=== PATIENT | female | born 1935 | race Caucasian/White ===

== ENCOUNTER 2018-09-16 16:17 | Inpatient (IN) | payer OTHER ==
--- NOTE | 2018-09-16 18:55 | GHP ---
POST ADMISSION PHYSICIAN EVALUATION AND REHABILITATION TREATMENT PLAN DATE OF ADMISSION: 09/16/2018 DATE OF EVALUATION: 09/16/2018. TIME OF EVALUATION: 1730 hours. REFERRING FACILITY: [facility]. REFERRING PHYSICIAN: Michele IMPAIRMENT GROUP: 3.8. DATE OF ONSET: 09/06/2018. CONSULTING PHYSICIANS: She was seen in consultation by neurologist, Dr. Olivas. Critical care physician, Dr. Mckeon. Inside Sales Director, Dr. Marie. REHABILITATION DIAGNOSIS: Debility, status post myasthenia gravis crisis. ETIOLOGIC DIAGNOSIS: Neuromuscular disorders. HISTORY OF PRESENT ILLNESS: This patient has a history of myasthenia gravis. She was treated with pyridostigmine, but she reports that she was not consistent with taking it. She had approximately a 1-week history of waxing and waning symptoms with difficulty speaking and swallowing, difficulty clearing secretions, perioral/oral numbness, and coughing. At the hospital, she was found to be in acute respiratory failure and unable to clear secretions. She was intubated on 09/06/2018 and extubated on 09/08/2018. She received plasma exchange and 5 days of IVIG. She was treated with high-dose corticosteroids, as well as pyridostigmine. She had an episode of paroxysmal atrial fibrillation while in the hospital. 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 It was evaluated for catecholamine secretion with a test for urinary metanephrines, which was negative.She had considerable improvement, and is otherwise medically stable and ready for inpatient rehabilitation. LABS AND STUDIES DURING HER STAY: Basic metabolic profile was followed, and was normal and remained stable on tests to which I have access 09/13 through 07/2018. CBC showed an elevated white blood cell count consistent with corticosteroid treatment. She also had a low platelet count. Otherwise, CBC was normal. Triglycerides were normal. Brain imaging showed white matter changes consistent with ischemic small vessel disease. She had mild-to- moderate proximal left vertebral artery stenosis, and the paraganglioma was seen. There was no evidence of acute infarction and no significant mass lesions seen. Chest x-rays ruled out pneumonia and verified placement of endotracheal tube. An abdominal x-ray verified placement of a small bowel feeding tube. PRECAUTIONS: She is a fall risk, and she has aspiration precautions. ACTIVE COMORBIDITIES: She has the tier 2 comorbidity of dysphagia. She has no other active tier 1, tier 2, or tier 3 comorbidities. PAST MEDICAL HISTORY: 1. Hypothyroidism. 2. Myasthenia gravis. 3. Kyphosis. PAST SURGICAL HISTORY: She has not had any surgeries. PRE-HOSPITAL MEDICATIONS: 1. Levothyroxine 100 mcg p.o. daily. 2. Pyridostigmine 60 mg p.o. three times daily. ADMISSION MEDICATIONS: 1. Levothyroxine 100 mcg p.o. daily. 2. Omeprazole 20 mg p.o. daily, to be taken as long as she is taking prednisone. 3. Prednisone 40 mg p.o. daily, with taper to be determined on neurology followup. 4. Pyridostigmine 60 mg p.o. three times daily. ALLERGIES: There is an allergy listed to penicillin. PSYCHOSOCIAL HISTORY: She lives alone. She has a downstairs roommate, whom she was able to call for help, who took her to the hospital. She is a nonsmoker and a nondrinker. 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 She has a local son. FAMILY HISTORY: Noncontributory. REVIEW OF SYSTEMS: She is not in pain. She reports she has had considerable improvement in terms of her strength, but she feels weak due to her multiple days flat on her back in the hospital. She denies difficulty swallowing. She does not notice fatigue of small muscles with repetitive use and is not aware of any dysarthria. She has no vision changes. She reports normal sensation. She denies cough or dyspnea. She denies chest pain or palpitations. She denies nausea, vomiting, constipation, or diarrhea, and she has a good appetite. She denies dysuria or urinary frequency. Otherwise, a 10-point review of systems is negative. PHYSICAL EXAM: VITAL SIGNS: Blood pressure is 134/78, heart rate 75, respiratory rate 16, oxygen saturation 95% on room air, and temperature 36.8 degrees centigrade. Her weight is 67.1 kg for a body mass index of 23.9. GENERAL: This is a well-nourished, well-developed elderly female, wearing hospital scrubs, sitting up in a chair, eating dinner, cooperative and in no acute distress. HEENT: Extraocular movements are intact. Pupils are equal, round, and reactive to light. Mucous membranes are moist. Dentition is in good condition. She has been uncrowded airway, Mallampati class 1. NECK: Supple. HEART: There is a regular rate and rhythm with no murmurs, rubs, or gallops. LUNGS: Clear to auscultation bilaterally. ABDOMEN: Soft, nontender , and nondistended with normoactive bowel sounds. BACK AND EXTREMITIES: She has notable kyphosis. There is no cyanosis, clubbing, or edema. Radial and dorsalis pedis pulses are 2+ bilaterally. NEUROLOGIC: She is alert and oriented x3. Cranial nerves 2 through 12 are grossly intact. There is no focal weakness. Sensation is intact to light touch. There is no dysarthria. She is able to arise from seated independently, and she can ambulate with a slightly wide base of support and short steps. CURRENT LEVEL OF FUNCTION PER THE PREADMISSION SCREEN: She was on a dysphagia 1 diet with nectar-thick liquids; however, she has since been advanced to a regular textured diet and thin liquids. Grooming required setup and supervision. Dressing required maximal assist for lower body dressing, especially socks. Toileting was done with supervision. Bed mobility required moderate assist from supine to sit. Transfers required supervision for sit to stand. She used a front-wheeled walker. She was able to stand as long as 10 minutes with occasional rests. She was able to ambulate with supervision and a front-wheeled walker for 150 feet. Communication and cognition were considered to be intact. On today's exam, she appears to have developed more independence with mobility. Otherwise, there are no significant changes from the pre-admission screen. IMPRESSION: This is an 83-year-old woman with a history of myasthenia gravis, who was inconsistent in use of pyridostigmine and developed a myasthenia gravis crisis with inability to clear secretions, difficulty swallowing, and subsequent acute respiratory failure. She was intubated. She received treatment including plasmapheresis, IVIG, and high-dose steroids, and she has had recovery. However, she remains in a debilitated state from her time in the hospital, including intubation and associated bedrest and inactivity. During her hospitalization, she had an episode of paroxysmal atrial fibrillation which resolved. She was discharged on no anticoagulation. 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 She otherwise was medically stable and is appropriate for inpatient rehabilitation. Her goal is to complete a rehabilitation stay and then return home with support from her roommate and her son. She wishes to be independent for mobility and activities of daily. For a safe discharge, it is anticipated that she will be able to advance to a modified independent level for all activities of daily living and mobility using the least restrictive device. She may have support from her roommate and her son for household duties. She will need to be on the least restrictive diet and to manage oral secretions. She will need to have insight into her deficits and be able to use compensatory strategies independently. She will have therapy with Physical Therapy, Occupational Therapy, and Speech and Language Pathology for 60 minutes per day for each discipline on 5 to 7 days of the week. Her expected duration of stay is 5 to 7 days. It is anticipated that upon discharge, she may benefit from home health services including Nursing, Speech and Language Pathology, Occupational Therapy , and Physical Therapy, as well as a myasthenia gravis support group. PLAN: 1. Debility following hospitalization for myasthenia gravis with considerable recovery following treatment with plasmapheresis, IVIG, and high-dose corticosteroids. PT and OT to optimize mobility and activities of daily living towards discharge home at the modified independent level. 2. Dysphagia appears to have largely resolved. She is discharged on thin liquids and a regular texture diet. She will have screening per Speech and Language Pathology. 3. Myasthenia gravis. Continue prednisone at 40 mg daily and pyridostigmine at 60 mg three times daily. She will follow up with Neurology after her discharge for a prednisone taper. 4. Hypothyroidism. Continue levothyroxine. 5. Right carotid paraganglioma. Plan from the hospital was to follow up with ENT, as well as Oncology at [facility]. 6. Prophylaxis. The episode of atrial fibrillation was considered to be due to critical illness, and no recommendation was made regarding anticoagulation. She is on prednisone at a high dose, and so she has been cautiously prescribed omeprazole for GI protection. She will continue likely pantoprazole per hospital formulary, likely throughout her rehabilitation stay. FOLLOWUP: She will follow up with primary care provider, Dr. Parsons, at the [facility]. She will follow up with [facility] within 1 to 2 weeks. She will follow up regarding her paraganglioma, with the plan being to be seen by a specialist at [facility]. /[id number]/MODL MTDD
[2018-09-16] MEDS: PYRIDOSTIGMINE BROMIDE 60 MG TAB PO SCH (20:09)
[2018-09-17] MEDS: PANTOPRAZOLE SODIUM 40 MG TAB PO SCH (06:17)
[2018-09-17] MEDS: LEVOTHYROXINE 100 MCG TAB PO SCH (06:17)
[2018-09-17] MEDS: PYRIDOSTIGMINE BROMIDE 60 MG TAB PO SCH ×3 (08:37→20:21)
[2018-09-17] MEDS ORDERED: predniSONE 5 MG TAB PO SCH (09:00)
--- NOTE | 2018-09-17 12:41 | SOAPPROG ---
SOAP Progress Note Assessment/Plan: Assessment: Debility-recent hospitalization from ice any a gravis with considerable recovery following treatment with plasmapheresis, IVIG, and high-dose corticosteroids. PT and OT to optimize mobility and activities of daily living towards discharge home at the [facility] Dysphagia-She was admitted to the rehab service on thin liquids and regular texture diet. Speech and language pathology consulted and awaiting input Myasthenis Gravis. Continue prednisone 40 mg daily and pyridostigmine 60 mg three times daily. Follow-up with Neurology after her discharge for prednisone taper. Hypothyroidism. Continue levothyroxine. Right carotid paraganglioma. Follow-up with ENT as well as Oncology at [facility]. Prophylaxis. The episode of atrial fibrillation was considered to be due to critical illness and no recommendation was made regarding anticoagulation. She is on prednisone at high dose and so she has been cautiously prescribed omeprazole for GI prophylaxis. Dorsal kyphosis-physical therapy to instruct on exercises to stretch the pectorals and strengthen the shoulder elevators and retractors to improve posture and pulmonary function. Follow-up: She will follow-up with primary care provider, Dr. Parsons at the [facility]. She will have follow-up with [facility] within 1 -2 weeks. She will have follow-up regarding her para ganglioma at [facility] Plan: 09/17/18 12:36 Subjective: She reports she feels a little bit fatigued after multiple therapy sessions this morning. She does report that she is feeling stronger. She denies shortness of breath or dyspnea on exertion. No reports of anginal like symptoms during therapy. Objective: Vital Signs Temp Pulse Resp BP Pulse Ox 36.6 C 66 16 138/76 H 96 09/17/18 08:00 09/17/18 08:00 09/17/18 08:00 09/17/18 08:00 09/17/18 08:00 Laboratory Results 09/17/18 06:50 09/16/18 09/17/18 09/18/18 05:59 05:59 05:59 Intake Total 375 Output Total 450 Balance -75 Physical Exam - Physical Exam General Appearance: WD/WN, alert, no apparent distress Respiratory: lungs clear, normal breath sounds, other (Dorsal kyphosis noted) Abdomen: normal bowel sounds, non-tender, soft Skin: warm/dry Extremities: No swelling, No Kenneth's sign Neuro/Psych: alert, normal mood/affect, oriented x 3 (Subjectively reports weakness in both upper and lower extremities ), No speech abnormalities ICD10 Worksheet Patient Problems: Problems Problem Status Onset Myasthenia gravis Acute
[2018-09-18] MEDS: LEVOTHYROXINE 100 MCG TAB PO SCH (06:53)
[2018-09-18] MEDS: PANTOPRAZOLE SODIUM 40 MG TAB PO SCH (06:53)
[2018-09-18] MEDS: PYRIDOSTIGMINE BROMIDE 60 MG TAB PO SCH ×3 (09:14→20:01)
[2018-09-18] MEDS: predniSONE 20 MG TAB PO SCH (09:14)
--- NOTE | 2018-09-18 09:18 | SOAPPROG ---
SOAP Progress Note Assessment/Plan: Assessment: Debility-recent hospitalization from myasthenia gravis with considerable recovery following treatment with plasmapheresis, IVIG, and high-dose corticosteroids. PT and OT to optimize mobility and activities of daily living towards discharge home at the [facility]. SHE REPORTS HER STRENGTH IS IMPROVING. 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 Dysphagia-She was admitted to the rehab service on thin liquids and regular texture diet. Speech and language pathology consulted and awaiting input. DENIES DYSPHAGIA. SHE IS TOLERATING REGULAR DIET AND THIN LIQUIDS. Myasthenis Gravis. Continue prednisone 40 mg daily and pyridostigmine 60 mg three times daily. Follow-up with Neurology after her discharge for prednisone taper. SHE IS FOLLOWED BY [facility]. Hypothyroidism. Continue levothyroxine. Right carotid paraganglioma. Follow-up with ENT as well as Oncology at [facility]. Prophylaxis. The episode of atrial fibrillation was considered to be due to critical illness and no recommendation was made regarding anticoagulation. She is on prednisone at high dose and so she has been cautiously prescribed omeprazole for GI prophylaxis. Dorsal kyphosis-Physical therapy to instruct on exercises to stretch the pectorals and strengthen the shoulder elevators and retractors to improve posture and pulmonary function. Follow-up: She will follow-up with primary care provider, Dr. Parsons at the [facility]. She will have follow-up with [facility] within 1-2 weeks. She will have follow-up regarding her para ganglioma at [facility] 09/18/18 09:19 Subjective: SHE REPORTS THAT A SHE IS PLEASED WITH PHYSICAL THERAPY AND THEY ARE TRYING TO ESTABLISH HER BASELINE UPPER AND LOWER EXTREMITY STRENGTH. SHE DOES REPORT THAT SHE HAS AT LEAST 2 FLARE UPS OF MYASTHENIA GRAVIS PER YEAR. SHE REPORTS THAT THEY HAVE BEEN HARD TO CONTROL WITH MEDICATIONS. SHE IS FOLLOWED BY [facility]. SHE STATES THIS MOST RECENT EPISODE INCLUDED DIFFICULTY SWALLOWING AND NECK MUSCLE WEAKNESS. SHE CURRENTLY DENIES DYSPHAGIA OR SHORTNESS OF BREATH. SHE DOES REPORT THAT HER UPPER LOWER EXTREMITY STRENGTH IS IN IMPROVING. Objective: Vital Signs Temp Pulse Resp BP Pulse Ox 36.7 C 71 16 137/82 H 96 09/18/18 07:16 09/17/18 20:00 09/18/18 07:16 09/18/18 07:16 09/18/18 07:16 Laboratory Results 09/17/18 06:50 09/17/18 09/18/18 09/19/18 05:59 05:59 05:59 Intake Total 375 1240 Output Total 450 Balance -75 1240 Physical Exam - Physical Exam General Appearance: WD/WN, alert, no apparent distress Neck: other (HEAD HELD IN NEUTRAL POSITION. EXAGGERATED DORSAL KYPHOSIS NOTED) Respiratory: chest non-tender, lungs clear, normal breath sounds Cardiac/Chest: No edema Abdomen: normal bowel sounds, non-tender Skin: normal color, warm/dry Neuro/Psych: alert, normal mood/affect, oriented x 3, No speech abnormalities ICD10 Worksheet Patient Problems: Problems Problem Status Onset Myasthenia gravis Acute
[2018-09-18] MEDS ORDERED: CEPACOL LOZENGE PO PRN (19:33)
[2018-09-19] MEDS: PANTOPRAZOLE SODIUM 40 MG TAB PO SCH (06:08)
[2018-09-19] MEDS: LEVOTHYROXINE 100 MCG TAB PO SCH (06:08)
[2018-09-19] MEDS: predniSONE 20 MG TAB PO SCH (08:35)
[2018-09-19] MEDS: PYRIDOSTIGMINE BROMIDE 60 MG TAB PO SCH ×3 (08:36→20:46)
--- NOTE | 2018-09-19 15:26 | SOAPPROG ---
SOAP Progress Note Assessment/Plan: Assessment: Debility-recent hospitalization from myasthenia gravis with considerable recovery following treatment with plasmapheresis, IVIG, and high-dose corticosteroids. PT and OT to optimize mobility and activities of daily living towards discharge home at the [facility]. SHE REPORTS HER STRENGTH IS IMPROVING. 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 Dysphagia-She was admitted to the rehab service on thin liquids and regular texture diet. Speech and language pathology consulted and awaiting input. DENIES DYSPHAGIA. SHE IS TOLERATING REGULAR DIET AND THIN LIQUIDS. Myasthenis Gravis. Continue prednisone 40 mg daily and pyridostigmine 60 mg three times daily. Follow-up with Neurology after her discharge for prednisone taper. SHE IS FOLLOWED BY [facility]. Hypothyroidism. Continue levothyroxine. Right carotid paraganglioma. Follow-up with ENT as well as Oncology at [facility]. Prophylaxis. The episode of atrial fibrillation was considered to be due to critical illness and no recommendation was made regarding anticoagulation. She is on prednisone at high dose and so she has been cautiously prescribed omeprazole for GI prophylaxis. Dorsal kyphosis-Physical therapy to instruct on exercises to stretch the pectorals and strengthen the shoulder elevators and retractors to improve posture and pulmonary function. Follow-up: She will follow-up with primary care provider, Dr. Parsons at the [facility]. She will have follow-up with [facility] within 1-2 weeks. She will have follow-up regarding her para ganglioma at [facility] 09/18/18 09:19 Subjective: No new complaints. She reports that she is very pleased with her progress in her therapy sessions. Objective: Vital Signs Temp Pulse Resp BP Pulse Ox 36.7 C 64 16 151/86 H 96 09/19/18 06:16 09/19/18 06:16 09/19/18 06:16 09/19/18 06:16 09/19/18 06:16 Laboratory Results 09/17/18 06:50 09/18/18 09/19/18 09/20/18 05:59 05:59 05:59 Intake Total 1240 240 600 Balance 1240 240 600 Physical Exam - Physical Exam General Appearance: WD/WN, alert, no apparent distress Respiratory: lungs clear, normal breath sounds Abdomen: non-tender, soft, other (No suprapubic tenderness) Skin: normal color, warm/dry Extremities: No swelling, No Kenneth's sign Neuro/Psych: motor weakness (Has some weakness of the right and left hip flexors. 4+/5 right and left hip abductors, abductors, quadriceps, hamstrings and ankle dorsiflexors.), other (Steppage gait with plantigrade foot strike.) ICD10 Worksheet Patient Problems: Problems Problem Status Onset Myasthenia gravis Acute
[2018-09-20] MEDS: LEVOTHYROXINE 100 MCG TAB PO SCH (05:35)
[2018-09-20] MEDS: PANTOPRAZOLE SODIUM 40 MG TAB PO SCH (05:35)
[2018-09-20] MEDS: predniSONE 20 MG TAB PO SCH (08:53)
[2018-09-20] MEDS: PYRIDOSTIGMINE BROMIDE 60 MG TAB PO SCH ×3 (08:53→21:01)
--- NOTE | 2018-09-20 12:07 | HOSPPROG ---
Hospitalist Progress Note Assessment/Plan: Debility-recent hospitalization from myasthenia gravis with considerable recovery following treatment with plasmapheresis, IVIG, and high-dose corticosteroids. PT and OT to optimize mobility and activities of daily living towards discharge home at the [facility]. SHE REPORTS HER STRENGTH IS IMPROVING. 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 Dysphagia-She was admitted to the rehab service on thin liquids and regular texture diet. Speech and language pathology consulted and awaiting input. DENIES DYSPHAGIA. SHE IS TOLERATING REGULAR DIET AND THIN LIQUIDS. Myasthenis Gravis. Continue prednisone 40 mg daily and pyridostigmine 60 mg three times daily. Follow-up with Neurology after her discharge for prednisone taper. SHE IS FOLLOWED BY [facility]. Hypothyroidism. Continue levothyroxine. Right carotid paraganglioma. Follow-up with ENT as well as Oncology at [facility]. Prophylaxis. The episode of atrial fibrillation was considered to be due to critical illness and no recommendation was made regarding anticoagulation. She is on prednisone at high dose and so she has been cautiously prescribed omeprazole for GI prophylaxis. Dorsal kyphosis-Physical therapy to instruct on exercises to stretch the pectorals and strengthen the shoulder elevators and retractors to improve posture and pulmonary function. Follow-up: She will follow-up with primary care provider, Dr. Parsons at the [facility]. She will have follow-up with [facility] within 1-2 weeks. She will have follow-up regarding her para ganglioma at [facility] Subjective: no new complaints. doing well with therapy Objective: Vital Signs Temp Pulse Resp BP Pulse Ox 36.8 C 73 15 154/92 H 94 09/20/18 07:01 09/20/18 07:01 09/20/18 07:01 09/20/18 07:01 09/20/18 07:01 Laboratory Results 09/17/18 06:50 09/19/18 09/20/18 09/21/18 05:59 05:59 05:59 Intake Total 240 1430 Output Total 1 Balance 240 1429 - Physical Exam Constitutional: no apparent distress, appears nourished, not in pain Eyes: anicteric sclera, EOMI Ears, Nose, Mouth, Throat: moist mucous membranes Cardiovascular: regular rate and rhythym Respiratory: no respiratory distress Neurologic: AAOx3 Psychiatric: interacting appropriately, not anxious, not encephalopathic, thought process linear ICD10 Worksheet Patient Problems: Problems Problem Status Onset Myasthenia gravis Acute
[2018-09-21] MEDS: PANTOPRAZOLE SODIUM 40 MG TAB PO SCH (06:21)
[2018-09-21] MEDS: LEVOTHYROXINE 100 MCG TAB PO SCH (06:21)
[2018-09-21] MEDS: PYRIDOSTIGMINE BROMIDE 60 MG TAB PO SCH ×3 (08:31→20:55)
[2018-09-21] MEDS: predniSONE 20 MG TAB PO SCH (08:31)
--- NOTE | 2018-09-21 12:14 | HOSPPROG ---
Hospitalist Progress Note Assessment/Plan: Debility-recent hospitalization from myasthenia gravis with considerable recovery following treatment with plasmapheresis, IVIG, and high-dose corticosteroids. PT and OT to optimize mobility and activities of daily living towards discharge home at the [facility]. SHE REPORTS HER STRENGTH IS IMPROVING. 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 Dysphagia-She was admitted to the rehab service on thin liquids and regular texture diet. Speech and language pathology consulted and awaiting input. DENIES DYSPHAGIA. SHE IS TOLERATING REGULAR DIET AND THIN LIQUIDS. Myasthenis Gravis. Continue prednisone 40 mg daily and pyridostigmine 60 mg three times daily. Follow-up with Neurology after her discharge for prednisone taper. SHE IS FOLLOWED BY [facility]. Hypothyroidism. Continue levothyroxine. Right carotid paraganglioma. Follow-up with ENT as well as Oncology at [facility]. Prophylaxis. The episode of atrial fibrillation was considered to be due to critical illness and no recommendation was made regarding anticoagulation. She is on prednisone at high dose and so she has been cautiously prescribed omeprazole for GI prophylaxis. Dorsal kyphosis-Physical therapy to instruct on exercises to stretch the pectorals and strengthen the shoulder elevators and retractors to improve posture and pulmonary function. Follow-up: She will follow-up with primary care provider, Dr. Parsons at the [facility]. She will have follow-up with [facility] within 1-2 weeks. She will have follow-up regarding her para ganglioma at [facility] Subjective: doing great. no new complaints Objective: Vital Signs Temp Pulse Resp BP Pulse Ox 36.7 C 65 15 162/90 H 96 09/21/18 06:52 09/21/18 06:52 09/21/18 06:52 09/21/18 06:52 09/21/18 06:52 Laboratory Results 09/17/18 06:50 09/20/18 09/21/18 09/22/18 05:59 05:59 05:59 Intake Total 1430 1190 250 Output Total 1 Balance 1429 1190 250 - Physical Exam Constitutional: no apparent distress, appears nourished, not in pain Eyes: anicteric sclera, EOMI Ears, Nose, Mouth, Throat: moist mucous membranes Cardiovascular: regular rate and rhythym Respiratory: no respiratory distress, no rales or rhonchi, clear to auscultation Gastrointestinal: normoactive bowel sounds, soft, non-tender abdomen, no palpable masses Skin: warm Neurologic: AAOx3 Psychiatric: interacting appropriately, not anxious, not encephalopathic, thought process linear ICD10 Worksheet Patient Problems: Problems Problem Status Onset Myasthenia gravis Acute
[2018-09-22] MEDS: LEVOTHYROXINE 100 MCG TAB PO SCH (06:00)
[2018-09-22] MEDS: PANTOPRAZOLE SODIUM 40 MG TAB PO SCH (06:00)
[2018-09-22] MEDS: predniSONE 20 MG TAB PO SCH (08:33)
[2018-09-22] MEDS: PYRIDOSTIGMINE BROMIDE 60 MG TAB PO SCH ×3 (08:33→20:56)
--- NOTE | 2018-09-22 12:02 | PDOREHIP ---
Admission [facility] - Admission - 3 Day Assessment Period Admission Date/Day 1: 09/16/18 Day 2: 09/17/18 Day 3: 09/18/18 - Active Diagnoses Comorbidities and Co-existing Conditions at Admission: 97372. None of the Above - Skin Conditions Unhealed Pressure Ulcer (1 or more/Stage 1 or >)-Admission: 0. No # Stage 1 Pressure Ulcers-Admission: 0 # Stage 2 Pressure Ulcers-Admission: 0 # Stage 3 Pressure Ulcers-Admission: 0 # Stage 4 Pressure Ulcers-Admission: 0 # Unstageable Pressure Ulcers (Non-remove Dress)-Admission: 0 # Unstageable Pressure Ulcers (Slough/Eschar)-Admission: 0 # Unstageable Pressure Ulcers (Deep Tissue Injury)-Admission: 0 Discharge [facility] - Discharge - 3 Day Assessment Period 2 Days Prior to Anticipated Discharge Date: 09/21/18 1 Day Prior to Anticipated Discharge Date: 09/22/18 Anticipated Discharge Date: 09/23/18
--- NOTE | 2018-09-22 14:04 | SOAPPROG ---
[facility] Progress Note Assessment/Plan: Assessment: Debility following hospitalization for myasthenia gravis with considerable recovery following treatment with plasmapheresis, IVIG, and high-dose corticosteroids. * Much improved. Has been independent in her room and on the unit since 2017. * Continue PT and OT to optimize mobility and activities of daily living towards discharge home at the modified independent level. Dysphagia, resolved Myasthenia gravis. Continue prednisone at 40 mg daily and pyridostigmine at 60 mg three times daily. She will follow up with Neurology after her discharge for a prednisone taper. Hypothyroidism. Continue levothyroxine. Right carotid paraganglioma. Plan from the hospital was to follow up with ENT, as well as Oncology at [facility]. Prophylaxis. The episode of atrial fibrillation was considered to be due to critical illness, and no recommendation was made regarding anticoagulation. Will not continue proton pump inhibitor upon discharge as absolute risk of peptic ulcer on prednisone it is very low. FOLLOWUP: She will follow up with primary care provider, Dr. Pina. She will follow up with neurologist 1 to 2 weeks. She will follow up regarding her paraganglioma, with the plan being to be seen by a specialist at [facility]. 09/22/18 13:39 Subjective: No complaints. Feels ready to go home tomorrow. Objective: Vital Signs Temp Pulse Resp BP Pulse Ox 36.7 C 69 16 160/88 H 95 09/22/18 06:32 09/22/18 06:32 09/22/18 06:32 09/22/18 06:32 09/22/18 06:32 Laboratory Results 09/17/18 06:50 09/21/18 09/22/18 09/23/18 05:59 05:59 05:59 Intake Total 1190 700 300 Balance 1190 700 300 Physical Exam - Physical Exam General Appearance: WD/WN, alert, no apparent distress Respiratory: No respiratory distress, No accessory muscle use Skin: normal color, warm/dry Neuro/Psych: alert, normal mood/affect, oriented x 3, sensory deficit (Hard of hearing) ICD10 Worksheet Patient Problems: Problems Problem Status Onset Myasthenia gravis Acute
[2018-09-23] MEDS: LEVOTHYROXINE 100 MCG TAB PO SCH (05:53)
[2018-09-23] MEDS: PANTOPRAZOLE SODIUM 40 MG TAB PO SCH (05:53)
[2018-09-23 06:21] VITALS: BP 150/96
[2018-09-23] MEDS: predniSONE 20 MG TAB PO SCH (08:37)
[2018-09-23] MEDS: PYRIDOSTIGMINE BROMIDE 60 MG TAB PO SCH (08:37)
--- NOTE | 2018-09-24 12:42 | PDOREHIP ---
Admission [facility] - Admission - 3 Day Assessment Period Admission Date/Day 1: 09/16/18 Day 2: 09/17/18 Day 3: 09/18/18 - Active Diagnoses Comorbidities and Co-existing Conditions at Admission: 10433. None of the Above Discharge [facility] - Discharge - 3 Day Assessment Period 2 Days Prior to Anticipated Discharge Date: 09/21/18 1 Day Prior to Anticipated Discharge Date: 09/22/18 Anticipated Discharge Date: 09/23/18 - Discharge Skin Conditions Unhealed Pressure Ulcer (1 or more/Stage 1 or >)-Discharge: 0. No # Stage 1 Pressure Ulcers-Discharge: 0 # Stage 2 Pressure Ulcers-Discharge: 0 # of These Stage 2 Pressure Ulcers Present on Admission: 0 # Stage 3 Pressure Ulcers-Discharge: 0 # of These Stage 3 Pressure Ulcers Present on Admission: 0 # Stage 4 Pressure Ulcers-Discharge: 0 # of These Stage 4 Pressure Ulcers Present on Admission: 0 # Unstageable Pressure Ulcers (Non-remove Dress)-Discharge: 0 # These Unstageable Pressure Ulcers (NRD)-Present on Admit: 0 # Unstageable Pressure Ulcers (Slough/Eschar)-Discharge: 0 # These Unstageable Pressure Ulcers(Slough) Present on Admit: 0 # Unstageable Pressure Ulcers (Deep Tissue Injury)-Discharge: 0 # These Unstageable Pressure Ulcers (DTI) Present on Admit: 0
--- NOTE | 2018-09-24 15:20 | GDS ---
ADMISSION DIAGNOSIS: Debility, status post myasthenia gravis crisis. DISCHARGE DIAGNOSIS: Debility, status post myasthenia gravis crisis. OTHER DISCHARGE DIAGNOSES: 1. Hypothyroidism. 2. Right carotid paraganglioma. COMPLICATIONS: There were none. CONSULTATIONS: There were none. PROCEDURES: There were none. HISTORY AND HOSPITAL COURSE: This patient was admitted from [facility] in [facility]. She had presented there on 09/16/2018, with a 1-week history of waxing and waning symptoms of difficulty speaking and swallowing, difficulty clearing secretions, perioral numbness and coughing . She was found to be in acute respiratory failure, unable to clear secretions in the hospital and s he was intubated from 09/06/2018 to 09/08/2018. She was diagnosed with a myasthenia gravis crisis, p ossibly due to noncompliance with pyridostigmine. She was treated with plasma exchange and 5 days of IVIG as well as high-dose corticosteroids. Pyridostigmine was restarted. There was an episode of pa roxysmal atrial fibrillation in the hospital. There was an incidental finding of a right carotid par aganglioma. There was no catecholamine secretion found in a test for urinary metanephrines. She had improvement in her condition and was appropriate for inpatient rehabilitation. She did well in rehabilitation. On the day of discharge she was able to climb and descend 18 steps us ing a rail with modified independence. She could go up and down an 8 inch curb step with a trekking pole and modified independence. She ambulated 400 feet with a trekking pole and modified independenc e. She was independent to modified independent for activities of daily living using assistive device s for bathing, bath transfers, and toileting. Regarding hypothyroidism, she was continued on levothyroxine and showed no signs or symptoms of hyper or hypothyroidism. DISCHARGE PLAN: Discharge disposition is home. Condition is good. There are no new allergies other than her prior allergy to penicillin. ACTIVITY: Ad bry. MEDICATIONS UPON DISCHARGE: 1. Levothyroxine 100 mcg p.o. daily. 2. Prednisone 40 mg p.o. daily. 3. Pyridostigmine 60 mg p.o. three times daily. ISSUES TO BE ADDRESSED AT FOLLOW UP: 1. Mobility and activities of daily living. She will continue home physical therapy. 2. Myasthenia gravis. She will be seen by neurologist, Dr. Kirkland. 3. Paraganglioma of the right carotid. During her acute hospitalization, followup was planned with ENT and Oncology at the [facility] in [place], [place]. Copy requested to: Dr. Silvana Kirkland /[id number]/MODL
== END 2018-09-23 14:28 | disposition home or self-care (01) | DRG 57 ==
LOC: BREH 16:17
PROVIDERS: ADMIT Internal Medicine; ATTEND Internal Medicine
DX: G70.01 Myasthenia gravis with (acute) exacerbation (principal); R13.19 Other dysphagia; E03.9 Hypothyroidism, unspecified; T44.0X6A Underdosing of anticholinesterase agents, initial encounter; D44.6 Neoplasm of uncertain behavior of carotid body
CPT/HCPCS: 92507-GN; 92523-GN; 92610-GN; 97110-GO; 97110-GP; 97112-GP; 97116-GP; 97161-GP; 97165-GO; 97530-GO; 97530-GP; 97535-GO; J7512